=== PATIENT | male | born 1990 | race Native Hawaiian/Other Pacific Islander ===

== ENCOUNTER 2020-01-06 11:18 | Outpatient (CLI) | payer OTHER, SELFPAY ==
[2020-01-06 11:42] LABS: Hemoglobin 16.2 g/dL (14.0-18.0); Mean Corpuscular Hemoglobin 31.5 pg (26-34); Mean Corpuscular Volume 87.4 fl (80-100); Mean Platelet Volume 8.7 fl (7.4-10.4); Platelet Count Result 308 k/mm3 (150-375); Red Blood Count 5.15 M/mm3 (4.6-6.20); Red Cell Distribution Width 12.1 % (11.5-14.5); White Blood Count 7.9 K/mm3 (4.5-10.0)
[2020-01-06 11:53] LABS: Alanine Aminotransferase 46 U/L (4-50); Albumin Level 4.8 g/dL (3.5-5.1); Alkaline Phosphatase 50 U/L (38-126); Anion Gap 12 mmol/L (8-16); Aspartate Amino Transferase 35 U/L (17-59); Bilirubin,Total 0.6 mg/dL (0.2-1.3); Blood Urea Nitrogen 8 mg/dL (9-20); Calcium 9.6 mg/dL (8.4-10.2); Carbon Dioxide 28 mmol/L (22-30); Chloride 103 mmol/L (98-107); Estimated Glomerular Filt Rate > 60; Glucose 117 mg/dL (75-110); Potassium 3.9 mmol/L (3.4-5.0); Sodium 143 mmol/L (137-145)
[2020-01-10 10:58] LABS: Tissue Transglutaminase IgA Ab 1 U/mL (<4)
[2020-01-10 22:21] LABS: Tissue Transglutaminase IgG Ab 4 U/mL (<6)
== END 2020-01-06 11:19 | disposition home or self-care (01) ==
LOC: ANHLAB 11:20
PROVIDERS: PCP Family Medicine; Visit Provider Internal Medicine Gastroenterology
DX: K58.2 Mixed irritable bowel syndrome (principal)
CPT/HCPCS: 36415; 80053; 83516; 84443; 85027

== ENCOUNTER 2020-01-13 00:47 | Outpatient (CLI) | payer OTHER, SELFPAY ==
[2020-01-13 18:59] LABS: SARS-CoV-2 RNA PCR Negative
== END 2020-01-13 00:48 | disposition home or self-care (01) ==
LOC: ANHCOVIDDT 00:47
PROVIDERS: PCP Family Medicine; Visit Provider Internal Medicine Gastroenterology
DX: Z01.812 Encounter for preprocedural laboratory examination (principal); Z20.828 Contact with and (suspected) exposure to other viral communicable diseases
CPT/HCPCS: 87635; C9803; U0003

== ENCOUNTER 2020-01-16 01:30 | Day surgery (SDC) | payer OTHER, SELFPAY ==
[2020-01-09 13:39] VITALS: BMI 28.5
--- NOTE | 2020-01-16 12:03 | WPDANESEPPF ---
Anes - Initial Pre Proc Eval Procedure: Operation Date: 01/16/20 13:15 Proposed Procedures p Colonoscopy - Terry Vines MD Date/Time: 01/16/20 12:03 Surgeon: Terry Vines MD Pre Op Diagnosis: Irritable Bowel Without Diarrhea Patient Data Age: 29 Gender: M Height: 6 ft Weight: 95.45 kg Allergies Allergy/AdvReac Type Severity Reaction Status Date / Time nickel Allergy Mild Rash Verified 01/16/20 12:03 Home Medications Medication Instructions Recorded Confirmed Type peg 3350-electrolytes 236 240 ml PO Q10M #4000 ml 12/26/19 Rx gram-22.74 gram-6.74 gram-5.86 gram solution jbgzaofzukly-nws-yvbg-FA-vit K 1 tablet PO DAILY 01/09/20 01/09/20 History [Adults Multivitamin] Patient hx anesthesia problems: none Family hx anesthesia problems: none PMFSH Past Medical History Medical History (Updated 12/21/19 @ 15:00 by Terry Vines MD) Irritable bowel syndrome with both constipation and diarrhea Surgical History Surgical History History of placement of ear tubes 1993 History of tonsillectomy 2002 Family History Family History Father Hypertension Grandparent Lung cancer Social History Social History Smoking status: Never smoker Tobacco type: e-cigarettes/vaping Additional smoking assessment comments: HAS VAPED FOR 8 YEARS Alcohol intake: current Drinks per week: 0 Alcohol use details: MAY HAVE A COUPLE OF DRINKS EVERY 3 OR 4 MONTHS Substance use: current Substance use type: marijuana Other substance usage details: 2 TO 3 TIMES PER WEEK, USES VAPE Living arrangements: with family 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 Gender identity (if verbalized by the patient): Male Spiritual care concerns: No Agree to blood products: Yes Anes - Eval Final PreProcedure Day of Procedure 01/16/20 12:03 Patient weight: overweight Heart: regular rate and rhythm Lungs: clear to auscultation Airway: Mallampati scale class II Neurological: alert and oriented Last oral intake: >/= 8 hours ASA classification: II Emergent: no Anesthetic plan: proceed Anesthesia type and monitoring: general GIVS and standard monitoring Informed Consent: The patient's anesthetic plan and its attendant risks and benefits were discussed with the patient/family/POA. Questions were solicited and answers provided to the satisfaction of the patient/family/POA.
[2020-01-16 12:04] VITALS: BP 111/76; PULSE 67; RESP 16; TEMP 36.9; O2SAT 99; BMI 61.2
[2020-01-16] MEDS: LACTATED RINGERS 1,000 ML 150 ML IV CONT (12:16)
--- NOTE | 2020-01-16 12:57 | WPDHPUPDATE1 ---
History and Physical Update Update Date/Time: 01/16/20 12:57 History and Physical has been reviewed, including an updated exam of the patient. There are NO changes in the patient's condition. Risks, benefits, and alternatives have been discussed and questions answered. Patient agrees to proceed with procedure.
[2020-01-16 13:15] VITALS: BP 106/68; PULSE 79; RESP 21; O2SAT 99
[2020-01-16 13:25] VITALS: BP 102/66; PULSE 61; RESP 19; O2SAT 99
[2020-01-16 13:35] VITALS: BP 108/78; PULSE 64; RESP 17; O2SAT 100
== END 2020-01-16 14:00 | disposition home or self-care (01) ==
PROVIDERS: PCP Family Medicine; Visit Provider Internal Medicine Gastroenterology
PROC: 0DJD8ZZ Inspection of Lower Intestinal Tract, Via Natural or Artificial Opening Endoscopic (ICD-10-PCS; CPT 45378; principal; 2020-01-16 13:15)
DX: K58.9 Irritable bowel syndrome, unspecified (principal); F17.290 Nicotine dependence, other tobacco product, uncomplicated
CPT/HCPCS: 45380; 88305; J2704; J7120

== ENCOUNTER 2022-07-21 08:00 | Outpatient (NON) | payer OTHER, SELFPAY | END 2022-07-21 08:01 | disposition home or self-care (01) | PROVIDERS: Visit Provider Internal Medicine Gastroenterology | DX: R11.2 Nausea with vomiting, unspecified (principal) | CPT/HCPCS: 88305 ==

== ENCOUNTER 2022-07-21 11:17 | Day surgery (SDC) | payer OTHER, SELFPAY ==
[2022-07-20 10:14] VITALS: BMI 27.0
[2022-07-20 12:42] VITALS: BMI 26.3
--- NOTE | 2022-07-20 14:36 | P.PNAN_ITS ---
Anes - Initial Pre Proc Eval Procedure: Operation Date: 07/21/22 13:00 Proposed Procedures p Esophagogastroduodenoscopy - Terry Vines MD Date/Time: 07/20/22 14:36 Surgeon: Terry Vines MD Pre Op Diagnosis: Nausea and Vomitting, Right Upper Quadrant Pain Patient Data Age: 31 Gender: M Height: 1.83 m Weight: 88 kg Allergies Allergy/AdvReac Type Severity Reaction Status Date / Time nickel Allergy Mild Rash Verified 07/21/22 11:42 Home Medications Medication Instructions Recorded Confirmed Type linaclotide 72 mcg capsule 72 mcg PO DAILY 1 month #30 caps 07/10/22 07/21/22 Rx (Linzess) Patient hx anesthesia problems: none Family hx anesthesia problems: none Results Review: All pre-operative results and documents have been reviewed as part of the pre- operative evaluation. [facility] Past Medical History Medical History (Updated 07/21/22 @ 13:34 by Terry Vines MD) Cholelithiasis Elevated LFTs Gall stones Hepatic steatosis Irritable bowel syndrome with both constipation and diarrhea Nausea and vomiting RUQ pain Surgical History Surgical History History of placement of ear tubes 1993 History of tonsillectomy 2002 Family History Family History Father Hypertension Grandparent Lung cancer Social History Social History Smoking status: Current every day smoker Tobacco type: e-cigarettes/vaping Additional smoking assessment comments: HAS VAPED FOR 8 YEARS Alcohol intake: current Drinks per week: 0 Alcohol use details: MAY HAVE A COUPLE OF DRINKS EVERY 3 OR 4 MONTHS Substance use: current Substance use type: marijuana Other substance usage details: 2 TO 3 TIMES PER WEEK, USES VAPE Living arrangements: alone Occupation/Education: occupation 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 Gender identity (if verbalized by the patient): Male Spiritual care concerns: No Agree to blood products: Yes Anes - Eval Final PreProcedure Day of Procedure 07/20/22 14:36 Patient weight: overweight Heart: regular rate and rhythm Lungs: clear to auscultation Airway: Mallampati scale class II Neurological: alert and oriented Last oral intake: >/= 8 hours ASA classification: II Emergent: no Anesthetic plan: proceed Anesthesia type and monitoring: general GIVS and standard monitoring Results Review: All pre-operative results and documents have been reviewed as part of the pre- operative evaluation. Informed Consent: The patient's anesthetic plan and its attendant risks and benefits were discussed with the patient/family/POA. Questions were solicited and answers provided to the satisfaction of the patient/family/POA.
[2022-07-21 11:44] VITALS: BP 110/76; PULSE 98; RESP 16; TEMP 36.3; O2SAT 100
[2022-07-21] MEDS: LACTATED RINGERS 1,000 ML 150 ML IV CONT (12:04)
--- NOTE | 2022-07-21 13:24 | WPDHPUPDATE1 ---
History and Physical Update Update Date/Time: 07/21/22 13:24 History and Physical has been reviewed, including an updated exam of the patient. There are NO changes in the patient's condition. Risks, benefits, and alternatives have been discussed and questions answered. Patient agrees to proceed with procedure.
[2022-07-21 13:38] VITALS: BP 104/69; PULSE 75; RESP 16; O2SAT 99
[2022-07-21 13:48] VITALS: BP 104/66; PULSE 75; RESP 18; O2SAT 97
[2022-07-21 13:58] VITALS: BP 111/87; PULSE 67; RESP 18; O2SAT 100
--- NOTE | 2022-07-21 14:20 | WPDANESPN ---
Anes - Prog Note Post-Op Date/Time: 07/21/22 14:20 Cardiovascular status: normal Respiratory status: normal Airway patency: baseline Mental status: baseline Post-Op hydration status: normal Vital Signs: Last Vital Signs Temp 36.3 C L 07/21/22 11:44 Pulse 67 07/21/22 13:58 Resp 18 07/21/22 13:58 BP 111/87 07/21/22 13:58 Pulse Ox 100 07/21/22 13:58 O2 Del Method Room Air 07/21/22 13:58 Pain Score (VAS): 0 I/O: Intake & Output 07/20/22 07/21/22 07/21/22 23:59 07:59 15:59 Intake Total 500 Balance 500 Post-procedural complaints: none Patient Feedback: Patient satisfied with anesthetic care. Other Findings: Patient vital signs back to baseline. Patient denies nausea and vomiting. Patient's pain under control. Patient OK for discharge.
== END 2022-07-21 14:16 | disposition home or self-care (01) ==
PROVIDERS: Visit Provider Internal Medicine Gastroenterology
PROC: 0DJ08ZZ Inspection of Upper Intestinal Tract, Via Natural or Artificial Opening Endoscopic (ICD-10-PCS; CPT 43235; principal; 2022-07-21 13:00)
DX: R11.2 Nausea with vomiting, unspecified (principal)
CPT/HCPCS: 43239

== ENCOUNTER 2022-08-12 07:48 | Outpatient (CLI) | payer OTHER, SELFPAY ==
--- NOTE | ~2022-08-12 | NM_ITS ---
EXAMINATION: NM hepatobiliary wo pharm DATE: 08/12/2022 10:49 INDICATION: Cholelithiasis without cholecystitis COMPARISON: None. TECHNIQUE: 8.8 mCi Tc-99m mebrofenin (Choletec) was administered intravenously. Scintigraphic images of the abdomen were obtained for one hour. At the 1 hour and 15 minute time point, the patient drank 8 oz Ensure, and imaging was continued for 60 minutes. Gallbladder ejection fraction was calculated by the technologist. FINDINGS: There is normal clearance of radiotracer from the blood pool. There is homogeneous tracer u ptake by the liver. Activity progresses to the bowel and gallbladder. The gallbladder ejection fract ion (GBEF) is 17%. Note that with this technique, normal GBEF >= 33%. IMPRESSION: 1. Gallbladder ejection fraction is below the lower limits of normal. This would be consistent with gallbladder dysfunction or chronic cholecystitis in the appropriate clinical setting. Reviewed, dictated and finalized at location A. IMPRESSION: 1. Gallbladder ejection fraction is below the lower limits of normal. This wou ld be consistent with gallbladder dysfunction or chronic cholecystitis in the a ppropriate clinical setting.
== END 2022-08-12 07:49 | disposition home or self-care (01) ==
PROVIDERS: Visit Provider Surgery
DX: K80.20 Calculus of gallbladder without cholecystitis without obstruction (principal)
CPT/HCPCS: 78226; A9537

== ENCOUNTER 2022-10-08 01:58 | Day surgery (SDC) | payer OTHER, SELFPAY ==
[2022-09-09 10:51] VITALS: BMI 26.4
--- NOTE | 2022-09-09 10:59 | PC.NURSE ---
Addendum entered by Ruth Lovelace RN 09/29/22 15:13: PT TO ARRIVE AT 1100 ON 10/08/22 FOR SURGERY AT 1300. Original Note: Report to the Outpatient Waiting Room, entrance under the green pavilion located off [facility], at time 11:45 on date 09/16/22. Planned Procedure Time: 1:45. Time changes happen often and if your time is changed the preop area will call you the afternoon before. - You and your visitor will be asked to self-screen and do not enter if you have any COVID symptoms. - A mask is optional within the hospital at this time. Patients may have clear liquids (water, carbonated beverages, clear teas, apple juice) until 3 hours prior to surgery (10:45) with a maximum of 20 ounces. - No food from midnight until time of surgery Take the following medications with a SIP of water the morning of surgery: NONE DO NOT STOP ANY OF YOUR OTHER PRESCRIPTION MEDICATIONS PRIOR TO SURGERY EXCEPT THE FOLLOWING Medications to discontinue per physician: N/A Date to take last dose: N/A Please no make-up, nail tunisian, hairspray, perfume, deodorant, or body powder the day of surgery. No jewelry (including any body piercings) or valuables the day of surgery, leave them at home. Please take a shower or bath the night before, or the morning of, surgery with an antibacterial soap (HIBICLENS). Wear comfortable, loose fitting clothing. - Jewelry must be removed prior to entering the operating room. Rings and piercings that are not removed may be cut off. - The hospital will not accept responsibility for valuables. - Please leave all valuables, including medications, at home the day of surgery. If you are going home after surgery, a licensed sulky driver must drive you home. - NO public transportation without another adult if you receive anesthesia. - We recommend that an adult stay with you for 24 hours following discharge. - We also recommend that you do not drive, make important decision, drink alcoholic beverages, or take any drugs that were not prescribed by your health care provider for at least 24 hours after your discharge time. Follow any additional instructions given to you from your surgeon. If you or anyone in your household have experienced Covid symptoms in the past week, please notify your surgeon or the nurse liaison at the phone number below for possible testing. Telephone instructions given to PT - QUOC FRAZIER and asked if any additional questions and then verbalized understanding. Patient advised to call surgeon office or pre surgery nurse liaison [phone] if any additional questions.
--- NOTE | 2022-09-29 15:12 | PC.NURSE ---
Pt states no changes in medications or health history since initial interview. New pre-op instructions reviewed with pt. Pt denies further questions at this time.
--- NOTE | 2022-10-05 16:52 | PM.SD2 ---
Same Day Admit/Disch: HPI History of Present Illness Chief complaint: chronic cholecystitis with stones Narrative: Parker Boles is a 31 year old male who in May developed severe upper abdominal pain that radiated to his back. This came on after a fatty meal and was associated with nausea and vomiting. The pain and symptoms lasted nearly a week. He subsequently had an ultrasound of the gallbladder which showed gallstones. He had an EGD 07/22/2022 that was negative. He had a HIDA scan in August that showed a low gallbladder ejection fraction of only 17%. After discussion, he is taken to surgery now for laparoscopic cholecystectomy for chronic cholecystitis with gallstones. [facility] Past Medical History Medical History (Updated 10/08/22 @ 15:03 by Marquise Bautista MD) Hepatic steatosis Irritable bowel syndrome with both constipation and diarrhea Surgical History Surgical History (Updated 10/08/22 @ 15:03 by Marquise Bautista MD) History of laparoscopic cholecystectomy 10/08/[address] Bautista History of placement of ear tubes 1993 History of tonsillectomy 2002 Family History Family History (Updated 08/20/22 @ 09:31 by Татьяна Mabry) Father Hypertension Grandparent Lung cancer Mother Malrotation of intestine Social History Social History Smoking status: Current every day smoker Tobacco type: e-cigarettes/vaping Additional smoking assessment comments: HAS VAPED FOR 8 YEARS Alcohol intake: current Drinks per week: 0 Alcohol use details: VERY RARE Substance use: current Substance use type: marijuana Other substance usage details: 2 TO 3 TIMES PER WEEK, USES VAPE Living arrangements: alone Occupation/Education: occupation 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 Gender identity (if verbalized by the patient): Male Spiritual care concerns: No Agree to blood products: Yes Same Day Admit/Disch: Med Pre-admit Medications Home Medications Medication Instructions Recorded Confirmed Type linaclotide 72 mcg capsule 72 mcg PO DAILY 1 month #30 caps 08/05/22 10/08/22 Rx (Linzess) ketorolac 10 mg tablet 10 mg PO Q6H 4 days #16 tabs 10/08/22 Rx oxycodone-acetaminophen 5 mg-325 1 - 2 tablet PO Q6H PRN pain #10 10/08/22 Rx mg tablet (Percocet) tabs Exam Const: General: comfortable, no acute distress, alert and awake HENMT: Head: normocephalic and atraumatic Mouth: Yes Normal oral and palatal mucosa present Eyes: Conjunctivae: conjunctivae normal Pupils: Equal, round and reactive pupils present EOM: EOMs intact bilaterally Neck: Neck: normal visual inspection, no lymphadenopathy and nontender Resp: Effort & Inspection: normal respiratory effort Auscultation: clear to auscultation bilaterally Cardio: Rate: regular rate Rhythm: regular rhythm Heart sounds: no gallops, no murmurs and no rubs GI: Inspection: non-distended GI Palp: Yes Soft to palpation, No Tenderness to palpation present (GI), No Hepatomegaly present and No Splenomegaly present Skin: Lesions: no lesions Rashes: no rashes Neuro: General: no focal motor deficits and CN's II-XI intact bilaterally Cranial nerves: Yes Equal, round and reactive pupils present, Yes Bilaterally intact EOM present, Yes facial symmetry and Yes Midline tongue present Speech: normal speech Motor exam (neuro): 5/5 motor strength present throughout and Motor abnormalities not present Extrem: General: no clubbing, cyanosis or edema and edema Psych: Affect: normal affect Thought process: Normal thought process present Insight: Good insight present (Psych) DS: Summary Time Spent with Patient Time attestation: Total time spent providing and/or coordinating discharge services: DS: Admitting Diagnosis Discharge Date 10/08/2022 Admitting Diagnosis Chronic cholecystitis, cholelithiasis-plan to proceed with laparoscopic cholec
--- NOTE | 2022-10-07 13:50 | WPDANESEPPF ---
Anes - Initial Pre Proc Eval Procedure: Operation Date: 10/08/22 13:00 Proposed Procedures p Laparoscopic Cholecystectomy - Marquise Bautista MD Date/Time: 10/07/22 13:50 Surgeon: Marquise Bautista MD Pre Op Diagnosis: chronic cholecystitis with stones Patient Data Age: 31 Gender: M Height: 1.83 m Weight: 88.45 kg Allergies Allergy/AdvReac Type Severity Reaction Status Date / Time nickel Allergy Mild Rash Verified 10/08/22 12:13 Home Medications Medication Instructions Recorded Confirmed Type linaclotide 72 mcg capsule 72 mcg PO DAILY 1 month #30 caps 08/05/22 10/08/22 Rx (Linzess) Patient hx anesthesia problems: none Family hx anesthesia problems: none Results Review: All pre-operative results and documents have been reviewed as part of the pre-operative evaluation. REPLACED BY [facility] Past Medical History Medical History Cholelithiasis Elevated LFTs Gall stones Hepatic steatosis Irritable bowel syndrome with both constipation and diarrhea Nausea and vomiting RUQ pain Surgical History Surgical History History of placement of ear tubes 1993 History of tonsillectomy 2002 Family History Family History (Updated 08/20/22 @ 09:31 by Татьяна Mabry) Father Hypertension Grandparent Lung cancer Mother Malrotation of intestine Social History Social History Smoking status: Current every day smoker Tobacco type: e-cigarettes/vaping Additional smoking assessment comments: HAS VAPED FOR 8 YEARS Alcohol intake: current Drinks per week: 0 Alcohol use details: VERY RARE Substance use: current Substance use type: marijuana Other substance usage details: 2 TO 3 TIMES PER WEEK, USES VAPE Living arrangements: alone Occupation/Education: occupation 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 Gender identity (if verbalized by the patient): Male Spiritual care concerns: No Agree to blood products: Yes Anes - Eval Final PreProcedure Day of Procedure 10/07/22 13:50 Patient weight: overweight Heart: regular rate and rhythm Lungs: clear to auscultation Airway: Mallampati scale class II Neurological: alert and oriented Last oral intake: >/= 8 hours ASA classification: II Emergent: no Anesthetic plan: proceed Anesthesia type and monitoring: general ETT and standard monitoring Results Review: All pre-operative results and documents have been reviewed as part of the pre-operative evaluation. Informed Consent: The patient's anesthetic plan and its attendant risks and benefits were discussed with the patient/family/POA. Questions were solicited and answers provided to the satisfaction of the patient/family/POA.
[2022-10-08] VITALS (11 sets, daily range): BP systolic 107–128; BP diastolic 62–88; PULSE 58–86; RESP 14–18; TEMP 36–36.8; O2SAT 97–100
[2022-10-08] MEDS: KETOROLAC 15 MG/ML VIAL (*BKC) IV PUSH (12:00)
[2022-10-08] MEDS: ACETAMINOPHEN 500 MG TABLET 1000 MG PO (12:00)
[2022-10-08] MEDS: LACTATED RINGERS 1,000 ML 30 ML IV CONT ×2 (12:00→14:57)
--- NOTE | 2022-10-08 13:44 | WPDHPUPDATE1 ---
History and Physical Update Update Date/Time: 10/08/22 13:44 History and Physical has been reviewed, including an updated exam of the patient. There are NO changes in the patient's condition. Risks, benefits, and alternatives have been discussed and questions answered. Patient agrees to proceed with procedure.
[2022-10-08] MEDS: ceFAZolin 2 GM/D5W 50 ML 2 GM/50 ML BAG IVPB (13:53)
[2022-10-08] MEDS: BUPIVACAINE/EPINEPHRINE 0.5% 10 ML VIAL 30 ML INFILTRATE (14:22)
--- NOTE | 2022-10-08 14:49 | P.OP_ITS ---
Procedure Note - Detailed Date of Procedure 10/08/22 Pre-op Diagnosis chronic cholecystitis with stones Post-op Diagnosis Same Procedure Performed Laparoscopic cholecystectomy Surgeon Marquise Bautista MD Anesthesia General and Local (0.25% Marcaine with epinephrine) Indications Patient is a 31-year-old man who in May of this year developed severe right upper quadrant pain that radiated through to his back. This was after eating a fatty meal. He had nausea and vomiting as well. He was noted on imaging to have gallstones. He changed his diet so that he was not eating fatty foods. He has had very little pain since then. He did have a HIDA scan which showed a low gallbladder ejection fraction of 17%. He is taken to surgery now for laparoscopic cholecystectomy for chronic cholecystitis with gallstones Findings Gallbladder had many gallstones present. There was mild chronic inflammation. There was no biliary ductal dilatation or liver abnormalities. There was no evidence of malrotation. Description of Procedure Patient was taken to surgery and induced into general anesthesia. The abdomen is prepped and draped. Trocars were placed in the usual fashion using Se[employer] optical trocars and a 5 mm camera. The gallbladder was exposed. It was very distended. A laparoscopic aspirator was used and the gallbladder was decompressed. There were many stones in the gallbladder. The cholecystotomy was closed with a Vicryl endoloop. Some adhesions to liver and the gallbladder were taken down. Cautery was used for hemostasis. The gallbladder was retracted anterosuperiorly. Dissection was carried out in the cholecystohepatic triangle. The cystic duct and cystic artery were dissected out very clearly. The gallbladder was dissected off the liver at its lower 3rd. Critical view was achieved. We securely clipped and divided the cystic duct cystic artery. The gallbladder was then carefully dissected free of its remaining peritoneal attachments to the liver. It was placed in an Endo-Catch bag and then retrieved through the 10 11 epigastric trocar site without difficulty. We replaced the 10 11 trocar. We then elevated the liver and expose gallbladder fossa and right up per quadrant. Repeated suctioning and irrigation was carried out. There was no evidence of bleeding or bile leakage. All looked quite good. A patient had concerns about intestinal malrotation as his mother has this and he has had chronic bowel problems his entire life. Before removing the laparoscopic instruments, I surveyed the cecum and transverse colon. There was no evidence of a malrotation. We then evacuated CO2 and removed the trocar sleeves. Skin wounds were closed with subcuticular 4-0 Monocryl skin suture. The wounds were dressed with Exofin surgical adhesive. Patient was awakened and taken to recovery in good condition. Sponge and needle counts were correct x2. Estimated Blood Loss -5 Drains No Packing No Pathology Yes (Gallbladder) Complications No immediate complications Condition Stable Disposition PACU [facility] Billing Surgery - Charge Forward: Surgery Billing (Laparoscopic cholecystectomy)
[2022-10-08] MEDS: fentaNYL CITRATE INJ (*CRX) 100 MCG/2 ML VIAL 25 MCG IV PUSH ×2 (15:32→15:35)
[2022-10-08] MEDS: oxyCODONE HCL (*CRX) 5 MG TAB IR PO (16:48)
== END 2022-10-08 17:10 | disposition home or self-care (01) ==
PROVIDERS: Visit Provider Surgery
PROC: 0FT44ZZ Resection of Gallbladder, Percutaneous Endoscopic Approach (ICD-10-PCS; CPT 47562; principal; 2022-10-08 13:00)
DX: K80.10 Calculus of gallbladder with chronic cholecystitis without obstruction (principal); K76.0 Fatty (change of) liver, not elsewhere classified; K58.2 Mixed irritable bowel syndrome; F17.290 Nicotine dependence, other tobacco product, uncomplicated; F12.90 Cannabis use, unspecified, uncomplicated
CPT/HCPCS: 47562; 36415; 86850; 86900; 86901; 88304; A9270; C1713; J0690; J1100; J1885; J2250; J2405; J2704; J3010; J7030; J7120

== ENCOUNTER 2025-01-23 08:05 | Outpatient (CLI) | payer BC, SELFPAY ==
--- OUTSIDE RECORDS SUMMARY | 2023-09-18 16:30 | XMS_ITS ---
Author Organization [facility] [place] ([address]) Address [address] [place] [address] Care Team Providers Care Animal Daycare Provider Name Role Phone ELISA Mathews Primary Care Provider Jean Paul Whitaker Unavailable [phone] ZZ-Migration, Provider Unavailable Unavailab le REASON FOR VISIT Multum To Medispan Conversion Encounter Medications Medication SIG (Take, Route, Frequency, Duration) Notes Start Date End Date Status Visbiome - 4 CAP(S) ORALLY ONCE A DAY *Please review and pick correct strength-formulation from Medispan options. If intended option is not shown, discontinue and re-order from Quick Search* 06/10/2022 Active Benefiber For Children 100% DIRECTED ORALLY 2 TIMES A DAY *Please review and pick correct strength-formulation from Medispan options. If intended option is not shown, discontinue and re-order from Quick Search* 06/10/2022 Active LACTAID (LACTASE) 3000 MG 3 PO WITH DAIRY FOOD; Duration: 30 DAY(S) *Please review for potential replacement for e-prescription and drug interaction check* 06/10/2022 Active Encounters Encounter Location Date Provider Diagnosis [facility] [address] [place] [address] 09/18/2023 Provider ZZ-Migration Diarrhea, unspecified R19.7 and Lactose intolerance, unspecified E73.9 Assessments Encounter Date Diagnosis (ICD Code) Assessment Notes Treatment Notes Treatment Clinical Notes Section Notes 09/18/2023 Diarrhea, unspecified (ICD-10 - R19.7) 09/18/2023 Lactose intolerance, unspecified (ICD-10 - E73.9) Plan Of Treatment Medication Medication Name Sig Start Date Stop Date Notes Visbiome - 4 CAP(S) ORALLY ONCE A DAY 06/10/2022 *Please review and pick correct strength-formulation from Medispan options. If intended option is not shown, discontinue and re-order from Quick Search* Benefiber For Children 100% DIRECTED ORALLY 2 TIMES A DAY 06/10/2022 *Please review and pick correct strength-formulation from Medispan options. If intended option is not shown, discontinue and re-order from Quick Search* LACTAID (LACTASE) 3000 MG 3 PO WITH DAIRY FOOD; Duration: 30 DAY(S) 06/10/2022 *Please review for potential replacement for e-prescription and drug interaction check* Progress Notes * MELISAMANUELKWADWO AashishKatOB: [birth year] (34 yo M)Acc No.[id number]:09/18/2023 Patient: Kee DIALLO Provider: Rohini Lyons :1990 A ge:32 Y S ex:Male Date:09/18/2023 Address:[address] [place], [place] [id number] Pcp:ELISA Mathews Subjective: * Chief Complaints: * 1 . [facility] * Medical History: Objective: * Vitals: Assessment: * Assessment: 1. D iarrhea, unspecified - R19.7 2 . L actose intolerance, unspecified - E73.9 Plan: * Treatment: 2. L actose intolerance, unspecified Start LACTAID (LACTASE) CAPSULE, 3000 MG, 3, PO, WITH DAIRY FOOD, 30 DAY(S), 1, Refills 0, Notes to Pharmacist: *Please review for potential replacement for e-prescription and drug interaction check*. * Billing Information: * Visit Code: * Procedure Codes: * Electronic signature of Shanice HouserZ-Migration on 01/23/2025 at 08:23 AM CDT Sign off status: Pending * Provider: Rohini Lyons Date: 0 09/18/2023 Generated for Amber arteaga/Kellie/Augusto on: 1 08:23 AM CDT
--- NOTE | ~2025-01-23 | US_ITS ---
ULTRASOUND ABDOMEN LIMITED (RIGHT UPPER QUADRANT) Clinical History: K76.0 - Fatty (change of) liver, not elsewhere classified Comparison: None Technique: Right upper quadrant sonography Findings: Liver: Normal size. Normal echotexture. No intrahepatic biliary ductal dilatation. Normal hepatopedal flow main portal vein. Common Duct: Normal caliber. 3 mm. Gallbladder: Removed. Pancreas: Largely obscured by bowel gas. Right kidney: 2 simple cysts. Retrohepatic IVC: Unremarkable. IMPRESSION: 1. No acute findings. Reviewed, dictated and finalized at location R. IMPRESSION: 1. No acute findings.
--- OUTSIDE RECORDS SUMMARY | 2025-01-23 08:24 | XMS_ITS | Encounter Summary ---
Author Organization [facility] Health Address [address] [place] [address] Care Team Providers Care Differential Repairer Name Role Phone Unavailable Primary Care Provider Unavailabl e Encounter Details Date Type Department Care Team (Latest Contact Info) Description 02/07/2021 Abstract Social History Tobacco Use Types Packs/Day Years Used Date Smoking Tobacco: Never Assessed Sex and Gender Information Value Date Recorded Sex Assigned at Not on file Legal Sex Male 12:34 PM PDT Gender Identity Not on file Sexual Orientation Not on file COVID-19 Exposure Response Date Recorded In the last month, have you been in contact with someone who was confirmed or suspected to have Coronavirus / COVID-19? No / Unsure 02/07/2021 8:03 AM PDT documented as of this encounter Plan of Treatment Not on file documented as of this encounter Visit Diagnoses Not on filedocumented in this encounter
--- OUTSIDE RECORDS SUMMARY | 2025-01-23 08:24 | XMS_ITS | Clinical Summary ---
Author Organization [facility] Address [address] [place] [phone] Phone Care Team Providers Care Welding Machine Operator Name Role Phone Kimberley Mathews Primary Care Provider [phone] Allergies Active Allergy Reactions Criticality Noted Date Comments Lactose Unknown 10/21/2020 Nickel Itching,Unknown Low 10/21/2020 Other reaction(s): Unknown Medications lactase 3,000 unit tablet,chewable Take 1 tablet by mouth Active Active Problems Problem Noted Date Diagnosed Date Hordeolum externum of right upper eyelid 023 Assessment & Plan (02/17/2023 2:24 PM BLOGS MANAGER): Rx. Bactrim due continued swelling and redness. Instructed pt to apply warm compresses to affected eye lid- 5 minutes on, 5 minutes off for the next several days while at home. May use OTC meds for pain/irritation if needed. Avoid any creams or makeup applied to the eyes or eyelids. Change out any creams or eye makeup used prior to this occurrence. If any problems or questions or no improvement of symptoms in the next few days, please f/u w/ PCP. Pt verbalized understanding. Immunizations Immunization Administration Dates Next Due IPV 12/08/2005 Influenza, Quadrivalent, Spl it, Preservative Free, Intramuscular 11/17/2016 Influenza, Unspecified 01/03/2022(Deferr ed: Patient Refused),01/03/2021(Deferred: Patient Refused) MMR 11/12/2003 Td, adsorbed 11/12/2003 Tdap 11/17/2016 Varicella 12/08/2005 Surgical History Surgery Date Site/Laterality Comments TONSILECTOMY, ADENOIDECTOMY, BILATERAL MYRINGOTOMY AND TUBES COLONOSCOPY 2020 LAPAROSCOPIC CHOLECYSTECTOMY 10/03/2022 - 11/02/2022 Family History Medical History Relation Name Comments Hypertension Father No Known Problems Maternal Grandfather Lung cancer Maternal Grandmother Gastroesophageal Reflux Disease Mother Thyroid disease Mother No Known Problems Paternal Grandfather No Known Problems Paternal Grandmother Relation Name Status Comments Father Alive Maternal Grandfather Maternal Grandmother Mother Alive Paternal Grandfather Alive Paternal Grandmother Social History Tobacco Use Types Packs/Day Years Used Date Smoking Tobacco: Never Smokeless Tobacco: Never AUDIT-C Answer Date Recorded Q1: How often do you have a drink containing alcohol? Monthly or less 06/01/2022 Q2: How many drinks containi ng alcohol do you have on a typical day when you are drinking? Patient does not drink Q3: How often do you have si x or more drinks on one occasion? Never 06/01/2022 PHQ-2 Answer Date Recorded PHQ-2 Total Score (If total score is 3 or more points, staff should administer the PHQ-9) 0 06/01/2022 Personal Safety Answer Date Recorded Getting School Help Needed Not on file 04/11 Sex and Gender Information Value Date Recorded Sex Assigned at Not on file Legal Sex Male 11:25 PM BLOGS MANAGER Gender Identity Not on file Sexual Orientation Not on file Obstetrics History Last Filed Vital Signs Vital Sign Reading Time Taken Comments Blood Pressure 110/74 06/01/2022 10:32 AM BLOGS MANAGER Pulse 94 06/01/2022 10:32 AM BLOGS MANAGER Temperature 36.1 C (97 F) 06/01/2022 10:32 AM BLOGS MANAGER Respiratory Rate 16 06/01/2022 10:32 AM BLOGS MANAGER Oxygen Saturation 97% 06/01/2022 10:32 AM BLOGS MANAGER Inhaled Oxygen Concentration - - Weight 91.9 kg (202 lb 9.6 oz) 06/01/2022 10:32 AM BLOGS MANAGER Height 182.9 cm (6') 06/01/2022 10:32 AM BLOGS MANAGER Body Mass Index 27.48 06/01/2022 10:32 AM BLOGS MANAGER Plan of Treatment Health Maintenance Due Date Last Done Comments Hepatitis C Screening 1992 Varicella Vaccines (2 of 2 - 2-dose childhood series) 03/02/2006 12/08/2005 Hepatitis B Screening 2010 Regular Well Visit/Exam 18-64 2010 HPV Vaccines (1 - 3-dose SCD M series) 12/27/2019 Depression Screening 06/01/2023 06/01/2022, 06/01/2022 Covid-19 Vaccine (3 - 2024-2 6 season) 2024 09/06/2020, 07/26/2020 Influenza Vaccine (#1) 2024 11/17/2016 DTaP/Tdap/Td Vaccine (3 - Td or Tdap) 11/17/2026 11/17/2016, 11/12/2003 Pneumococcal vaccine <65 Aged Out No longer eligible based on patient's age to complete this topic Insurance [facility]/PPO Address: [place] [address] [facility]/PPO Address: [facility] [id number] [place] [address] Care Teams Welding Machine Operator Relationship Specialty Start Date End Date Kimberley Mathews PA [address] [place] [address] PCP - General Family Medicine 06/01/22
--- OUTSIDE RECORDS SUMMARY | 2025-01-23 08:24 | XMS_ITS | Clinical Summary ---
Author Organization [facility] Address [address] [place] [address] Care Team Providers Care Bobbin Drier Name Role Phone Unavailable Primary Care Provider Unavailabl e Source Comments [facility],non-owned Affiliates and Associated Physician Practices is amultiple site organization consisting of ambulatory clinics and hospital sitesin [place], [place], [place] and [place]. This disclosure is being madepursuant to the Care Everywhere program and may not contain all information available regarding this patient. Last updated 17.[facility] [employer] Social History Tobacco Use Types Packs/Day Years Used Date Smoking Tobacco: Never Assessed Sex and Gender Information Value Date Recorded Sex Assigned at Not on file Legal Sex Male 9:00 AM CDT Gender Identity Not on file Sexual Orientation Not on file Plan of Treatment Health Maintenance Due Date Last Done Comments HIV SCREENING 12/27/2007 HEPATITIS C SCREENING 12/22/2010 DTAP/TDAP/TD VACCINES (1 - Tdap) 12/27/2011 HEPATITIS B VACCINE (1 of 3 - 19+ 3-dose series) 12/27/2011 HPV VACCINE (1 - 3-dose SCDM series) 12/27/2019 DEPRESSION SCREENING 04/05/2024 COVID-19 VACCINE (1 - 2023-2 5 season) 2024 INFLUENZA VACCINE (#1) 2024 11/17/2016 ZOSTER VACCINE (1 of 2) 2042 HIB VACCINE Aged Out No longer eligi ble based on patient's age to complete this topic MENINGOCOCCAL (Group B) VACC INE SHARED DECISION-MAKING Aged Out No longer eligibl e based on patient's age to complete this topic MENINGOCOCCAL GROUPS A/C/Y/W VACCINE Aged Out No longer eligible b ased on patient's age to complete this topic PNEUMOCOCCAL VACCINE Aged Out No long er eligible based on patient's age to complete this topic Insurance [facility]
--- OUTSIDE RECORDS SUMMARY | 2025-01-23 08:24 | XMS_ITS | Patient Health Record ---
Author Organization [facility] [employer] [place] ([address]) Address [address] [place] [address] Care Team Providers Care Flare Stitcher Name Role Phone ELISA Mathews Primary Care Provider Jean Paul Whitaker Unavailable [phone] Allergies No Known Allergies Reason For Referral No Information Medications Medication SIG (Take, Route, Frequency, Duration) Notes Start Date End Date Status BENEFIBER FOR CHILDREN 100% as directed orally 2 times a day 06/10/2022 Active VISBIOME - 4 cap(s) orally once a day 06/10/2022 Active Visbiome - 4 CAP(S) ORALLY ONCE A DAY *Please review and pick correct strength-formulation from [employer] options. If intended option is not shown, discontinue and re-order from Quick Search* 06/10/2022 Active Benefiber For Children 100% DIRECTED ORALLY 2 TIMES A DAY *Please review and pick correct strength-formulation from [employer] options. If intended option is not shown, discontinue and re-order from Quick Search* 06/10/2022 Active LACTAID (LACTASE) 3000 MG 3 PO WITH DAIRY FOOD; Duration: 30 DAY(S) *Please review for potential replacement for e-prescription and drug interaction check* 06/10/2022 Active Social History Tobacco Use: Social History Observation Description Date Details (start date - stop date) Never Smoker NA - NA Smoking Smart Form: Question Answer Notes Are you a: never smoker Problems Problem Type SNOMED Code ICD Code Onset Dates Problem Status W/U Status Risk Notes Problem Constipation (85682242) Constipation, unspecified (K59.00) Active confirmed Problem Generalized abdominal pain (349388086) Generalized abdominal pain (R10.84) Active confirmed Problem Nausea and vomiting (29503822) Nausea with vomiting, unspecified (R11.2) Active confirmed Problem Flatulence, eructation and gas pain (949141896) Abdominal distension (gaseous) (R14.0) Active confirmed Problem Diarrhea (88486507) Diarrhea, unspecified (R19.7) Active confirmed Problem Intolerance to lactose (finding) (424911900) Lactose intolerance, unspecified (E73.9) Active confirmed Plan Of Treatment No Information Insurance Providers Payer Name Payer Address Payer Phone Subscriber Number Group Number Insured Name Patient Relationship to Insured Coverage Start Date Coverage End Date [facility] [address] [address] [place] [address] [id number] Kee Boles Self - patient is the insured Medical (General) History Surgical History Surgery Date(Month/Year)
--- OUTSIDE RECORDS SUMMARY | 2025-01-23 08:24 | XMS_ITS | Clinical Summary ---
Author Organization [facility] Health Address [address] [place] [address] Care Team Providers Care Manager Field Services Name Role Phone Unavailable Primary Care Provider Unavailabl e Allergies Active Allergy Reactions Criticality Noted Date Comments Lactose Unknown 10/21/2020 Nickel Itching 10/21/2020 Other reaction(s): Unknown Medications ondansetron ODT (ZOFRAN-ODT) 4 mg dispersible tablet Take 4 mg by mouth every 8 (eight) hours if needed. 10/21/2020 Active Active Problems No known active problems Social History Tobacco Use Types Packs/Day Years Used Date Smoking Tobacco: Never Assessed Sex and Gender Information Value Date Recorded Sex Assigned at Not on file Legal Sex Male 12:34 PM PDT Gender Identity Not on file Sexual Orientation Not on file Plan of Treatment Health Maintenance Due Date Last Done Comments Dental Prophylaxis 1992 Dental Oral Exam 08/08/2021 02/07/2021 Dental X-Ray: Bitewings 08/08/2021 02/07/2021 Dental X-Ray: Full Mouth 02/10/2024 02/08/2021, 1108/2020 Dental X-Ray: Panoramic 02/10/2024 02/08/2021, 02/07 Procedures Procedure Name Priority Date/Time Associated Diagnosis Comments PANORAMIC RADIOGRAPHIC IMAGE Routine 02/07/2021 8:00 AM CDT INTRAORAL - COMPREHENSIVE SERIES OF RADIOGRAPHIC IMAGES Routine 02/07/2021 8:00 AM CDT COMPREHENSIVE ORAL EVALUATION - NEW OR ESTABLISHED PATIENT Routine 02/07/2021 8:00 AM CDT from Last 3 Months or Most Recently Relevant to Health Maintenance Insurance
--- OUTSIDE RECORDS SUMMARY | 2025-01-23 08:24 | XMS_ITS | Encounter Summary ---
Author Organization [facility] Health Address [address] [place] [address] Care Team Providers Care Crimping Press Operator Name Role Phone Unavailable Primary Care Provider Unavailabl e Prior Encounters Date Type Department Care Team Description 02/07/2021 Abstract 02/07/2021 Travel 02/07/2021 8:00 AM CDT Office Visit [facility] [address] [place] [id number] Carmela Vargas, CECE Plan of Treatment Not on file Procedures Procedure Name Priority Date/Time Associated Diagnosis Comments INTRAORAL PHOTO Routine 02/07/2021 8:00 AM CDT INTRAORAL PHOTO Routine 02/07/2021 8:00 AM CDT INTRAORAL PHOTO Routine 02/07/2021 8:00 AM CDT INTRAORAL PHOTO Routine 02/07/2021 8:00 AM CDT PANORAMIC RADIOGRAPHIC IMAGE Routine 02/07/2021 8:00 AM CDT INTRAORAL - COMPREHENSIVE SERIES OF RADIOGRAPHIC IMAGES Routine 02/07/2021 8:00 AM CDT COMPREHENSIVE ORAL EVALUATION - NEW OR ESTABLISHED PATIENT Routine 02/07/2021 8:00 AM CDT Visit Diagnoses Not on file Insurance [facility] PPO
[2025-01-23 09:21] LABS: Hematocrit 49.4 % (42.0-52.0); Hemoglobin 17.0 g/dL (14.0-18.0); Mean Corpuscular HGB Conc 34.4 g/dl (32-36); Mean Corpuscular Hemoglobin 30.7 pg (26-34); Mean Corpuscular Volume 89.3 fl (80-100); Platelet Count Result 275 k/mm3 (150-375); Red Blood Count 5.53 M/mm3 (4.6-6.20); White Blood Count 8.2 K/mm3 (4.5-10.0)
[2025-01-23 09:49] LABS: Alanine Aminotransferase 37 U/L (6-50); Albumin Level 4.4 g/dL (3.5-5.1); Alkaline Phosphatase 46 U/L (38-126); Anion Gap 10 mmol/L (4-12); Aspartate Amino Transferase 33 U/L (17-59); Bilirubin,Total 0.9 mg/dL (0.2-1.3); Blood Urea Nitrogen 12 mg/dL (9-20); Calcium 8.9 mg/dL (8.4-10.2); Carbon Dioxide 24 mmol/L (22-30); Chloride 105 mmol/L (98-107); Estimated Glomerular Filt Rate > 60; Glucose 98 mg/dL (65-110); Potassium 3.6 mmol/L (3.4-5.0); Sodium 139 mmol/L (137-145); Total Protein 7.7 g/dL (6.3-8.2)
== END 2025-01-23 08:06 | disposition home or self-care (01) ==
LOC: ANHIMG 08:09
PROVIDERS: PCP Physician Assistant; Visit Provider Nurse Practitioner Family
DX: K76.0 Fatty (change of) liver, not elsewhere classified (principal)
CPT/HCPCS: 36415; 76705; 80053; 85027